=== PATIENT | female | born 1990 | race Caucasian/White ===

== ENCOUNTER → 2018-07-04 | Outpatient (CLI) | payer BC ==
--- NOTE | 2018-07-04 15:56 | RAD ---
KNEE LEFT 3V History: lt knee pain, no known injury. Comparison: None are available No acute fracture or bone destruction. Joints and soft tissues appear intact. Impression: No acute radiographic abnormality Electronically signed by: Robb Quesada MD (07/04/2018 3:52 PM) [id number]
== END | disposition home or self-care (01) ==
LOC: RAD 15:25
PROVIDERS: ATTEND Registered Nurse
DX: M25.562 Pain in left knee (principal)
CPT/HCPCS: 73562

== ENCOUNTER → 2020-08-27 | Outpatient (CLI) | payer BC ==
--- NOTE | 2020-08-27 12:38 | RAD ---
XR LUMBAR SPINE 2-3V Clinical Indication: Reason: LOW BACK PAIN. RIGHT SIDED SCIATICA. Comparison: None. Findings: Sacroiliac joints are symmetric. 5 lumbar type vertebral bodies. No acute fracture. The alignment is maintained. Mild disc space narrowing of L1/L2 and L5/S1. There is mild endplate spurring of T12-L2. The mineralization is normal. Soft tissues unremarkable. IMPRESSION: No acute fracture or malalignment. Electronically signed by: Lorenzo Scott MD (08/27/2020 12:36 PM) [id number]
== END ==
LOC: PMG 11:56
PROVIDERS: ATTEND Nurse Practitioner Family
DX: M48.07 Spinal stenosis, lumbosacral region (principal); M46.05 Spinal enthesopathy, thoracolumbar region; M54.31 Sciatica, right side
CPT/HCPCS: 72100